=== PATIENT | male | born 1990 | race Two or more races ===

== ENCOUNTER 2025-04-08 18:26 | Emergency (ER) | payer MEDICAID, SELFPAY ==
--- NOTE | 2025-04-08 | ECG_ITS ---
Test Reason : CP Blood Pressure : */* mmHG Vent. Rate : 76 BPM Atrial Rate : 76 BPM P-R Int : 188 ms QRS Dur : 74 ms QT Int : 354 ms P-R-T Axes : 75 67 43 degrees QTcB Int : 398 ms Normal sinus rhythm Normal ECG No previous ECGs available Referred By: Generic ED Physician Electronically Signed By: HUSAM RIOJAS MD
[2025-04-08 18:34] VITALS: BP 122/78; BP 129/79; PULSE 61; PULSE 75; RESP 12; TEMP 36.8; O2SAT 100; O2SAT 99; BMI 19.3
[2025-04-08 18:41] VITALS: BP 110/70; PULSE 67; RESP 14; TEMP 36.6; O2SAT 98
[2025-04-08 19:02] LABS: MANUAL DIFF FLAG NO
[2025-04-08 19:03] LABS: Basophils Percent Auto 0.7 % (0-2); Eosinophils Absolute Auto 0.1 X10*3/uL (0.0-0.4); Hemoglobin 13.9 g/dl (14.0-18.0); Imm Gran Abs Auto 0.01 X10*3/uL (0.00-0.03); Imm Gran Pct Auto 0.3 % (0.0-0.4); Lymphocytes Percent Auto 33.1 % (20-40); Mean Corpuscular HGB Conc 36.6 g/dl (31.0-36.0); Mean Corpuscular Hemoglobin 30.9 pg (27.0-33.0); Mean Corpuscular Volume 84.4 fL (80.0-98.0); Mean Platelet Volume 9.2 fL (9.4-12.4); Monocytes Absolute Auto 0.3 X10*3/uL (0.1-1.2); Monocytes Percent Auto 10.3 % (2-11); Neutrophils Absolute Auto 1.6 x10*3/uL (2.0-8.3); Neutrophils Percent Auto 52.6 % (45-73); Platelet Count 180 X10*3/uL (160-400); Red Cell Distribution Width 14.1 % (11.0-16.0)
--- NOTE | 2025-04-08 19:09 | ED_ITS ---
HPI - Chest Pain General Chief Complaint: Chest Pain Stated Complaint: 910 chest pressure/palps, dizzy, shaky, dehydrate Time Seen by Provider: 04/08/25 19:09 History of Present Illness ED Provider: HPI narrative: 34-year-old male reports history of aplastic anemia however states he is not on any medications, he has not been drinking water all day and states has not urinated since this morning he started feeling dizzy and having palpitations and having not enough 10 press chest pressure was chest since resolved he states he has been under lot of stress he smokes tobacco and marijuana. At the time my evaluation he only reports being thirsty denies chest pain fevers chills nausea vomiting or diaphoresis. Related Data Allergies Allergy/AdvReac Type Severity Reaction Status Date / Time No Known Allergies Allergy Verified 04/08/25 18:40 Review of Systems 2 Constitutional: Constitutional: Reports as per [facility] Social History Social History Smoked in Last 30 Days: Yes Use of substances other than those prescribed or required for medical reasons: Yes Substance Use Type: Marijuana Advance Directives: No Advance Directives Information Provided: No Physical Exam 2 Vital Signs: Vital Signs: Last Vital Signs Temp 97.9 F 04/08/25 20:00 Pulse 70 04/08/25 20:00 Resp 10 L 04/08/25 20:00 BP 112/71 04/08/25 20:00 Pulse Ox 99 04/08/25 20:00 O2 Del Method Room Air 04/08/25 20:00 BMI result Body Mass Index 19.3 Const: Other: * Gen: ?Overall well-appearing patient * HEENT: PERRLA, EOMI, MMM, * Neck: Supple, no LAD * CV: RRR, no obvious murmurs appreciated * Resp: ?No wheezing rales rhonchi no stridor moving air well * Abd: ?Bowel sounds are present, no tenderness no rebound no rigidity * MSK: FROM, strength 5/5 all extremities * Skin: Warm, dry, intact, * Neuro: ?Alert and oriented x3, moving upper and lower extremities symmetrically, no obvious facial asymmetry noted Medications Administered Discontinued Medications Generic Name Dose Route Start Last Admin Trade Name Freq PRN Reason Stop Dose Admin Sodium Chloride 1,000 mls @ 999 mls/hr 04/08/25 19:30 04/08/25 19:51 Ns IV 04/08/25 20:30 999 mls/hr .Q1H1M SAFIA Administration Medical Decision Making Medical Decision Making [facility] Narrative: No hypoxia tachycardic to suspect PE, we will obtain chest x-ray to evaluate for pneumothorax, unlikely that this is related to Boerhaave syndrome has not had any forceful vomiting, chest x-ray to evaluate for mediastinal widening this is doubtful that he has aortic dissection he is very well-appearing and vital signs are stable, EKG without any changes to suspect myocarditis or ACS or dysrhythmia, we will give fluids we will re-evaluate anticipating discharge Lab Data [facility] Lab Attestation statement: I reviewed the patient's lab results. 04/08/25 18:57 04/08/25 18:57 Labs: Lab Results 04/08/25 Range/Units 18:57 WBC 3.0 L (4.8-10.8) X10*3/uL RBC 4.50 L (4.60-5.80) X10*6/uL Hgb 13.9 L (14.0-18.0) g/dl Hct 38.0 L (42.0-52.0) % MCV 84.4 (80.0-98.0) fL MCH 30.9 (27.0-33.0) pg MCHC 36.6 H (31.0-36.0) g/dl RDW 14.1 (11.0-16.0) % Plt Count 180 (160-400) X10*3/uL MPV 9.2 L (9.4-12.4) fL Immature Gran % (Auto) 0.3 (0.0-0.4) % Neut % (Auto) 52.6 (45-73) % Lymph % (Auto) 33.1 (20-40) % [place] % (Auto) 10.3 (2-11) % Eos % (Auto) 3.0 (0-4) % Baso % (Auto) 0.7 (0-2) % Lymph # (Auto) 1.0 L (1.2-4.9) X10*3/uL [place] # (Auto) 0.3 (0.1-1.2) X10*3/uL Eos # (Auto) 0.1 (0.0-0.4) X10*3/uL Baso # (Auto) 0.0 (0.0-0.2) X10*3/uL Abs Immat Gran (auto) 0.01 (0.00-0.03) X10*3/uL Absolute Neuts (auto) 1.6 L (2.0-8.3) x10*3/uL Absolute Nucleated RBC 0.000 (0.0-0.012) X10*3/uL Nucleated RBC % (auto) 0.0 (0.0-0.2) /100WBC Sodium 140 (135-145) mmol/L Potassium 3.7 (3.3-5.1) mmol/L Chloride 108 (96-108) mmol/L Carbon Dioxide 24 (22-29) mmol/L Anion Gap 12 (12-20) BUN 15 (9-16) mg/dL Creatinine 0.78 (0.5-1.4) mg/dL Estim Creat Clear Calc 106.2 Estimated GFR > 60 Random Glucose 102 (60-115) mg/dL Calcium 8.1 L (8.4-10.2) mg/dL Magnesium 1.7 (1.6-2.6) mg/dL Total Bilirubin 0.4 (0.0-1.0) mg/dL AST 21 (5-37) U/L ALT 12 (0-40) U/L Alkaline Phosphatase 84 (39-117) U/L Troponin I High Sens < 2.7 (<3.5-35.0) ng/L Total Protein 6.6 (6.5-8.0) g/dL Albumin 4.0 (3.5-5.0) g/dL Independent Interpretation I performed an independent interpretation of an: EKG (Seventy-six normal sinus rhythm, otherwise normal ECG without dysrhythmia, AV latasha blocks or ST-T changes to suspect underlying ACS, my independent interpretation) Discharge Plan Discharge Clinical Impression: Chest pain, Dizziness Patient Disposition: Home, Self-Care Instructions: Chest Pain (ED) Additional Instructions: Diagnosis and Initial Evaluation: You have been evaluated in the Emergency Department (ED) for chest pain. Based on your clinical assessment, electrocardiogram (ECG), and high-sensitivity cardiac troponin (hs-cTn) levels, you have been classified as low-risk for acute coronary syndrome (ACS) and myocardial infarction (NV). This means that your likelihood of having a heart attack or other serious heart condition in the next 30 days is very low. Please quit smoking tobacco, make sure to have follow up with the primary care physician, stay well hydrated, see my discharge instructions below Follow-Up Care: ? Primary Care Provider (PCP) or Privacy Manager: It is important to follow up with your primary care provider or rock dust sprayer within the next 14 to 30 days. This follow-up is crucial to ensure that any underlying conditions are managed appropriately and to discuss any further testing that may be needed. ? Notification: If you have an established PCP or rock dust sprayer, they have been notified of your ED visit to facilitate continuity of care. Self-Care and Monitoring: ? Medications: Continue taking any prescribed medications as directed. If you have been given new medications, ensure you understand how and when to take them. ? Activity: Resume normal activities as tolerated. Avoid strenuous activities until you have discussed them with your healthcare provider. ? Diet: Maintain a heart-healthy diet, low in saturated fats, cholesterol, and sodium. Red Flags: Seek immediate medical attention if you experience any of the following: ? New or worsening chest pain ? Shortness of breath ? Dizziness or fainting ? Pain radiating to your arm, neck, or jaw ? Sweating, nausea, or vomiting Additional Testing: In some cases, outpatient testing such as a stress test or imaging may be recommended to further evaluate your heart health. Your follow-up provider will discuss this with you if necessary. Mental Health: Anxiety and stress can contribute to chest pain. Consider discussing any concerns with your healthcare provider, who may recommend screening for anxiety or depression and appropriate management strategies. Contact Information: If you have any questions or concerns before your follow-up appointment, please contact your healthcare provider or the ED where you were evaluated. Summary: You have been discharged from the ED with a low risk of serious heart conditions. Follow the instructions above, attend your follow-up appointments, and seek immediate care if you experience any red flags. Print Language: Tuvaluan
[2025-04-08 19:18] LABS: Alanine Aminotransferase 12 U/L (0-40); Alkaline Phosphatase 84 U/L (39-117); Anion Gap 12 (12-20); Aspartate Amino Transferase 21 U/L (5-37); Bilirubin Total 0.4 mg/dL (0.0-1.0); Blood Urea Nitrogen 15 mg/dL (9-16); Calcium 8.1 mg/dL (8.4-10.2); Carbon Dioxide 24 mmol/L (22-29); Chloride 108 mmol/L (96-108); Creatinine Clr Calc Pharmacy 106.2; Estimated Glomerular Filt Rate > 60; Glucose Random 102 mg/dL (60-115); Magnesium 1.7 mg/dL (1.6-2.6); Potassium 3.7 mmol/L (3.3-5.1); Sodium 140 mmol/L (135-145); Total Protein 6.6 g/dL (6.5-8.0)
[2025-04-08 19:26] LABS: Troponin-I High Sensitivity < 2.7 ng/L (<3.5-35.0)
[2025-04-08] MEDS: 0.9 % Sodium Chloride 1,000 ML 999 ML IV (19:51)
[2025-04-08 20:00] VITALS: BP 112/71; PULSE 70; RESP 10; TEMP 36.6; O2SAT 99
[2025-04-08 21:26] VITALS: BP 113/51; PULSE 71; RESP 16; TEMP 36.4; O2SAT 99
== END 2025-04-08 21:27 | disposition home or self-care (01) ==
PROVIDERS: Emergency Provider Emergency Medicine
DX: R07.89 Other chest pain (principal); E86.0 Dehydration; R42 Dizziness and giddiness; R00.2 Palpitations; F17.210 Nicotine dependence, cigarettes, uncomplicated; F12.90 Cannabis use, unspecified, uncomplicated
CPT/HCPCS: 36415; 80053; 83735; 84484; 85025; 93005; 96360; 99284; 99285

== ENCOUNTER → 2025-04-08 18:44 | Outpatient (BNV) | payer MEDICAID, SELFPAY | PROVIDERS: Emergency Provider Emergency Medicine; Visit Provider Internal Medicine Cardiovascular Disease | DX: R07.9 Chest pain, unspecified (principal) | CPT/HCPCS: 93010 ==

== ENCOUNTER 2025-04-09 18:29 | Emergency (ER) | payer MEDICAID, SELFPAY ==
[2025-04-09 18:35] VITALS: BP 120/82; PULSE 87; O2SAT 100
[2025-04-09 18:41] VITALS: BP 111/82; PULSE 69; RESP 18; TEMP 36.8; O2SAT 98; BMI 20.4
--- NOTE | 2025-04-09 18:46 | ECG_ITS ---
Test Reason : cp Blood Pressure : */* mmHG Vent. Rate : 67 BPM Atrial Rate : 67 BPM P-R Int : 176 ms QRS Dur : 76 ms QT Int : 364 ms P-R-T Axes : 74 82 44 degrees QTcB Int : 384 ms Normal sinus rhythm with sinus arrhythmia Normal ECG When compared with ECG of 08-Apr-2025 18:44, No significant change was found Referred By: Generic ED Physician Electronically Signed By: HUSAM RIOJAS MD
--- NOTE | 2025-04-09 19:01 | ED_ITS ---
HPI - Chest Pain General Chief Complaint: Chest Pain Stated Complaint: CP Time Seen by Provider: 04/09/25 19:00 Source: patient Mode of arrival: ambulatory Limitations: no limitations History of Present Illness ED Provider: Dr. Vamsi Beck HPI narrative: 34-year-old male reports history of aplastic anemia who presents emergency department for evaluation of chest pain, palpitations, feeling anxious, lightheaded and dizzy with intermittent episodes lasting 1-2 hours for the last 2 weeks. He was also concerned that he was not drinking enough water and he has not urinated since this morning. He has intermittent episodes of feeling dizzy with palpitations palpitations. these episodes of palpitations that will last approximately 1-2 hours, he feels like his heart is pounding,racing and occasionally skips a beat. He also developed a pressure-like chest pain which has become more prominent and severe since yesterday. He has been under lot of stress recently and is feeling very anxious. He does 1-2 cups of coffee daily, he denies drinking other caffeinated beverages. He does smokes tobacco and marijuana. . Since being in the emergency department his chest pain resolved. At the time my evaluation he only reports being thirsty. He denied chest pain, fevers ,chills ,nausea, vomiting or diaphoresis. The patient was seen in our emergency department yesterday with similar complaints and diagnosed with chest pain and dizziness. Related Data Previous Rx's ?Medication ?Instructions ?Recorded propranolol 10 mg tablet 10 mg PO BID #60 tabs 04/09/25 lorazepam 1 mg tablet (Ativan) 1 mg PO BEDTIME PRN anxiety/sleep 04/10/25 #10 tabs Allergies Allergy/AdvReac Type Severity Reaction Status Date / Time No Known Allergies Allergy Verified 04/10/25 00:21 Review of Systems Review of Systems: Yes all other systems are reviewed and are negative [facility] Past Medical History [facility] Narrative: Social history: He does smoke cigarettes. He states that he occasionally drinks beer. He does smoke marijuana frequently. He states that he occasionally snorts cocaine but has not done this recently. Social History Social History Alcohol intake: current Alcohol intake frequency: a few times a week Alcohol type: beer Smoked in Last 30 Days: Yes Use of substances other than those prescribed or required for medical reasons: Yes Substance Use Type: Marijuana Substance Use Frequency: Daily Advance Directives: No Do you have a plan to hurt others: No Plan Physical Exam Vital Signs: Vital Signs: Last Vital Signs Temp 98.0 F 04/09/25 20:54 Pulse 64 04/09/25 20:59 Resp 16 04/09/25 20:54 BP 112/78 04/09/25 20:59 Pulse Ox 97 04/09/25 20:54 O2 Del Method Room Air 04/09/25 20:54 BMI result Body Mass Index 20.4 vital signs were normal. Exam: General: Awake, alert in no distress Head: Normocephalic, atraumatic EENT: PERRL, Lids normal, sclera normal, conjunctiva normal, nose normal , ears normal, throat without erythema or exudates Neck: Supple, no adenopathy Lung: breath sounds symmetric, no wheezing, rales or rhonchi Chest: symmetric movement, nontender Heart: regular rate and rhythm, normal S1, S2 no murmurs or rubs Abdomen: soft, non-tender, nondistended, normal bowel sounds Back: no vertebral tenderness, no CVAT Extremities: no deformities, moves all extremities symmetrically Neuro: Awake, alert, oriented, normal speech, cranial nerves intact, moves all extremities symmetrically Psych: Pleasant, cooperative Medications Administered Discontinued Medications Generic Name Dose Route Start Last Admin Trade Name Freq PRN Reason Stop Dose Admin Propranolol HCl 10 mg 04/09/25 20:20 04/09/25 20:59 Propranolol Hcl 10 Mg Tablet PO 04/09/25 20:21 10 mg ONCE ONE Administration Protocol Medical Decision Making Medical Decision Making MDM Narrative: 34-year-old male reports history of aplastic anemia who presents emergency department for evaluation of chest pain, palpitations, feeling anxious, lightheaded and dizzy with intermittent episodes lasting 1-2 hours for the last 2 weeks. Patient does drink 1-2 cups of coffee per day, does not use any other caffeinated energy drinks /beverages. Patient does drink beer occasionally, smokes marijuana frequently and occasionally snorts cocaine but is not use cocaine recently. He has also been experiencing intermittent chest pressure. The patient [place] [facility] [place] with similar complaints And diagnosed with chest pain and dizziness. Vital signs were unremarkable. Physical examination was unremarkable.. Differential diagnosis: Includes but is not limited to Palpitations, arrhythmia, anxiety, cocaine use disorder Course: I did review the patient's laboratory evaluation and workup from yesterday's ED visit. As WBC was low 3000 and he had a normal sciatic anemia with an H&H of 19.3 and 30.8. Patient does have a history of aplastic anemia and is followed by Hematology at [facility]. CMP was unremarkable. Patient's troponin yesterday was below detectable limits. Given this relatively negative workup I did not think that the patient laboratory evaluation at today's visit. The patient's 12 EKG was unremarkable. I believe that the symptoms that the patient is experiencing more consistent with palpitations and may be related to stress, anxiety, use of caffeine or cocaine. I did discuss this with the patient and told her that needs to avoid caffeine for at least 2 weeks and to not use cocaine since this could be causing problems. Since the patient is experiencing palpitations with a sensation of tachycardia felt that he would benefit from a beta-zen. The patient was prescribed propanolol 10 mg twice a day for 2 weeks to see if this improves his symptoms. He was advised to follow-up with his primary care provider or with our product development technician for further evaluate since palpitations as an outpatient. He was discharged home with printed and verbal instructions. Admission/Observation Consideration of admission/observation: Escalation of care including admission/observation considered (No) Independent Interpretation I performed an independent interpretation of an: EKG Interpretation: My independent interpretation patient's 12 EKG done on 04/09/2025 at 18:55 hours is as follows: Normal sinus rhythm with a rate of 67, normal CA interval, QRS duration QTC interval, no ST segment elevation, no ST segment depression, no old PACs or PVCs. Patient does have peaked V2 through V4, compared to an EKG done yesterday 04/08/2025 at 18:44 hours there was no significant change. Prescription Management I considered prescription management with: Other ( beta-zen, propanolol) Discharge Plan Discharge Clinical Impression: Palpitations Patient Disposition: Home, Self-Care Instructions: Heart Palpitations (DC) Additional Instructions: Your EKG today was unremarkable. You do not have evidence of LVH on your EKG Your white blood cell count of 3.0 (normal is 4.8 to 10.8) Your hemoglobin and hematocrit were slightly low at 13.9 and 38. Your platelet count was normal. Given these relatively normal values I do not think that your in an aplastic crisis at this time. Your complete blood count and troponin (marker of heart damage) were normal yesterday At this time, I believe that your symptoms are caused by palpitations (the sensation that your heart is beating fast) The treatment is to start a beta zen, propranolol 10 mg twice a day for 2 weeks then as needed for palpitations. You need to stop drinking caffeine beverages and avoid stimulants and this will improve your palpitations as well. If this treatment does not work or if your symptoms are getting worse then I want you to follow up with your primary care doctor or with our on-call product development technician to get a workup for palpitations. This would include an echocardiogram, Holter monitor for 2-3 to and possibly an event monitor or 1 month. Follow-up with your doctor in 2 days. Please return to the emergency department if your symptoms get worse or if you develop any symptoms that are concerning to you. Prescriptions: New propranolol 10 mg tablet 10 mg PO BID Qty: 60 0RF No Action lorazepam [Ativan] 1 mg tablet 1 mg PO BEDTIME PRN (Reason: anxiety/sleep) Qty: 10 0RF Interventions: ED Discharge Assessment Last Done: 04/09/25 20:54 Discharge Date/Time: 04/09/25 21:03 Print Language: Amharic
[2025-04-09 20:37] VITALS: BP 104/50; PULSE 53; RESP 16; TEMP 36.7; O2SAT 97
[2025-04-09 20:54] VITALS: BP 104/50; PULSE 53; RESP 16; TEMP 36.7; O2SAT 97
[2025-04-09 20:59] VITALS: BP 112/78; PULSE 64
[2025-04-09] MEDS: Propranolol HCL 10 MG TABLET PO (20:59)
== END 2025-04-09 21:03 | disposition home or self-care (01) ==
PROVIDERS: Emergency Provider Emergency Medicine Emergency Medical Services
DX: R00.2 Palpitations (principal); R07.9 Chest pain, unspecified; R42 Dizziness and giddiness
CPT/HCPCS: 93005; 99283; 99284

== ENCOUNTER → 2025-04-09 18:46 | Outpatient (BNV) | payer MEDICAID, SELFPAY | PROVIDERS: Emergency Provider Emergency Medicine Emergency Medical Services; Visit Provider Internal Medicine Cardiovascular Disease | DX: R00.1 Bradycardia, unspecified (principal) | CPT/HCPCS: 93010 ==

== ENCOUNTER 2025-04-10 00:07 | Emergency (ER) | payer MEDICAID, SELFPAY ==
--- NOTE | 2025-04-10 | ECG_ITS ---
Test Reason : cp Blood Pressure : */* mmHG Vent. Rate : 56 BPM Atrial Rate : 56 BPM P-R Int : 162 ms QRS Dur : 86 ms QT Int : 386 ms P-R-T Axes : 88 76 67 degrees QTcB Int : 372 ms Sinus bradycardia Otherwise normal ECG When compared with ECG of 09-Apr-2025 18:55, No significant change was found Referred By: Generic ED Physician Electronically Signed By: HUSAM RIOJAS MD
--- NOTE | ~2025-04-10 | XR_ITS ---
CLINICAL HISTORY: Left-sided chest pain 1 view chest x-ray Comparison: None Findings: The lungs are clear. Heart size is normal. No acute fracture. IMPRESSION: 1. No acute findings. This document has been electronically signed by: Noe Spann MD, PHD on 04/10/2025 03:34:20
[2025-04-10 00:12] VITALS: BP 128/76; PULSE 54; O2SAT 100
[2025-04-10 00:20] VITALS: BP 110/76; PULSE 80; RESP 18; TEMP 36.9; O2SAT 98; BMI 20.4
[2025-04-10 00:29] LABS: MANUAL DIFF FLAG NO
[2025-04-10 00:30] LABS: Basophils Percent Auto 0.5 % (0-2); Eosinophils Absolute Auto 0.1 X10*3/uL (0.0-0.4); Eosinophils Percent Auto 2.7 % (0-4); Hematocrit 41.8 % (42.0-52.0); Hemoglobin 15.5 g/dl (14.0-18.0); Lymphocytes Absolute Auto 1.3 X10*3/uL (1.2-4.9); Lymphocytes Percent Auto 34.7 % (20-40); Mean Corpuscular HGB Conc 37.1 g/dl (31.0-36.0); Mean Corpuscular Hemoglobin 30.5 pg (27.0-33.0); Mean Corpuscular Volume 82.3 fL (80.0-98.0); Mean Platelet Volume 8.9 fL (9.4-12.4); Monocytes Absolute Auto 0.3 X10*3/uL (0.1-1.2); Monocytes Percent Auto 8.8 % (2-11); Neutrophils Percent Auto 53.3 % (45-73); Platelet Count 217 X10*3/uL (160-400); Red Blood Count 5.08 X10*6/uL (4.60-5.80); Red Cell Distribution Width 13.6 % (11.0-16.0); White Blood Count 3.8 X10*3/uL (4.8-10.8)
[2025-04-10 00:51] LABS: Troponin-I High Sensitivity < 2.7 ng/L (<3.5-35.0)
[2025-04-10 00:52] LABS: Alanine Aminotransferase 13 U/L (0-40); Albumin Level 4.5 g/dL (3.5-5.0); Alkaline Phosphatase 95 U/L (39-117); Anion Gap 15 (12-20); Aspartate Amino Transferase 33 U/L (5-37); Bilirubin Total 0.7 mg/dL (0.0-1.0); Blood Urea Nitrogen 8 mg/dL (9-16); Calcium 9.6 mg/dL (8.4-10.2); Carbon Dioxide 21 mmol/L (22-29); Chloride 107 mmol/L (96-108); Creatinine Clr Calc Pharmacy 130.7; Estimated Glomerular Filt Rate > 60; Glucose Random 114 mg/dL (60-115); Potassium 3.7 mmol/L (3.3-5.1); Sodium 139 mmol/L (135-145); Total Protein 7.4 g/dL (6.5-8.0)
--- NOTE | 2025-04-10 02:22 | ED_ITS ---
HPI - Chest Pain General Chief Complaint: Chest Pain Stated Complaint: CHEST PAIN/PRESSURE Time Seen by Provider: 04/10/25 02:02 Source: patient Mode of arrival: ambulatory Limitations: no limitations History of Present Illness ED Provider: HPI narrative: Patient's history of severe anxiety was seen here earlier for chest pain comes back again as not able to sleep for last 3 nights and having chest pain patient has a labs done prior to my evaluation which was normal cardiac enzymes and EKG was without any ischemic changes Related Data Previous Rx's ?Medication ?Instructions ?Recorded propranolol 10 mg tablet 10 mg PO BID #60 tabs 04/09/25 lorazepam 1 mg tablet (Ativan) 1 mg PO BEDTIME PRN anxiety/sleep 04/10/25 #10 tabs Allergies Allergy/AdvReac Type Severity Reaction Status Date / Time No Known Allergies Allergy Verified 04/10/25 00:21 Review of Systems 2 Review of Systems: Yes all other systems are reviewed and are negative [facility] Social History Social History Alcohol intake: current Alcohol intake frequency: a few times a week Alcohol type: beer Smoked in Last 30 Days: Yes Use of substances other than those prescribed or required for medical reasons: Yes Substance Use Type: Marijuana Substance Use Frequency: Daily Advance Directives: No Do you have a plan to hurt others: No Plan Physical Exam 2 Vital Signs: Vital Signs: Last Vital Signs Temp 98.3 F 04/10/25 03:59 Pulse 55 04/10/25 03:59 Resp 14 04/10/25 03:59 BP 100/61 04/10/25 03:59 Pulse Ox 95 04/10/25 03:59 O2 Del Method Room Air 04/10/25 03:59 BMI result Body Mass Index 20.4 Appearance: Alert. Oriented X3. No acute distress. Anxious Eyes: PERRLA, No Nystagmus ENT: Pharynx normal. Oral Mucosa moist Neck: Normal inspection. Neck supple. CVS: Normal heart rate and rhythm. Pulses normal. Respiratory: No respiratory distress. Equal air entry bilateral, no wheezing/rales/rhonchi Abdomen: Soft and nontender. Bowel sounds are present, no mass palpable, no CVA tenderness Skin: Skin warm and dry. Normal skin color. Normal skin turgor. Extremities: No lower extremity edema. No calf tenderness Neuro: Oriented X 3. No motor deficit. No sensory deficit.No cerebellar signs , cranial nerves II-XII intact Medications Administered Discontinued Medications Generic Name Dose Route Start Last Admin Trade Name Zoya PRN Reason Stop Dose Admin Lorazepam 2 mg 04/10/25 02:27 04/10/25 02:51 Lorazepam 1 Mg Tablet PO 04/10/25 02:28 2 mg ONCE ONE Administration Medical Decision Making Medical Decision Making [facility] Narrative: Patient has severe anxiety chest x-ray negative for any acute pathology labs are stable EKG without ischemic changes was given Ativan Differential Diagnosis Differential Diagnoses: The differential diagnosis associated with the presentation includes Lab Data [facility] Lab Attestation statement: I reviewed the patient's lab results. 04/10/25 00:24 04/10/25 00:24 Labs: Lab Results 04/10/25 Range/Units 00:24 WBC 3.8 L (4.8-10.8) X10*3/uL RBC 5.08 (4.60-5.80) X10*6/uL Hgb 15.5 (14.0-18.0) g/dl Hct 41.8 L (42.0-52.0) % MCV 82.3 (80.0-98.0) fL MCH 30.5 (27.0-33.0) pg MCHC 37.1 H (31.0-36.0) g/dl RDW 13.6 (11.0-16.0) % Plt Count 217 (160-400) X10*3/uL MPV 8.9 L (9.4-12.4) fL Immature Gran % (Auto) 0.0 (0.0-0.4) % Neut % (Auto) 53.3 (45-73) % Lymph % (Auto) 34.7 (20-40) % [place] % (Auto) 8.8 (2-11) % Eos % (Auto) 2.7 (0-4) % Baso % (Auto) 0.5 (0-2) % Lymph # (Auto) 1.3 (1.2-4.9) X10*3/uL [place] # (Auto) 0.3 (0.1-1.2) X10*3/uL Eos # (Auto) 0.1 (0.0-0.4) X10*3/uL Baso # (Auto) 0.0 (0.0-0.2) X10*3/uL Abs Immat Gran (auto) 0.00 (0.00-0.03) X10*3/uL Absolute Neuts (auto) 2.0 (2.0-8.3) x10*3/uL Absolute Nucleated RBC 0.000 (0.0-0.012) X10*3/uL Nucleated RBC % (auto) 0.0 (0.0-0.2) /100WBC Sodium 139 (135-145) mmol/L Potassium 3.7 (3.3-5.1) mmol/L Chloride 107 (96-108) mmol/L Carbon Dioxide 21 L (22-29) mmol/L Anion Gap 15 (12-20) BUN 8 L (9-16) mg/dL Creatinine 0.67 (0.5-1.4) mg/dL Estim Creat Clear Calc 130.7 Estimated GFR > 60 Random Glucose 114 (60-115) mg/dL Calcium 9.6 D (8.4-10.2) mg/dL Total Bilirubin 0.7 (0.0-1.0) mg/dL AST 33 (5-37) U/L ALT 13 (0-40) U/L Alkaline Phosphatase 95 (39-117) U/L Troponin I High Sens < 2.7 (<3.5-35.0) ng/L Total Protein 7.4 (6.5-8.0) g/dL Albumin 4.5 (3.5-5.0) g/dL Independent Interpretation I performed an independent interpretation of an: EKG and Plain X-Ray Interpretation: Sinus bradycardia heart rate 56 beats per minute normal intervals normal axis no acute STT wave changes no acute ischemia Discharge Plan Discharge Clinical Impression: Atypical chest pain, Anxiety Patient Disposition: Home, Self-Care Instructions: Noncardiac Chest Pain (ED), Anxiety (ED) Additional Instructions: Take medication for anxiety and follow up with your PCP Your chest pain is not from the cardiac origin Prescriptions: New lorazepam [Ativan] 1 mg tablet 1 mg PO BEDTIME PRN (Reason: anxiety/sleep) Qty: 10 0RF No Action propranolol 10 mg tablet 10 mg PO BID Qty: 60 0RF Interventions: ED Discharge Assessment Last Done: 04/10/25 03:59 Discharge Date/Time: 04/10/25 04:00 Print Language: Bulgarian
[2025-04-10] MEDS: LORazepam 1 MG TABLET 2 MG PO (02:51)
[2025-04-10 03:59] VITALS: BP 100/61; PULSE 55; RESP 14; TEMP 36.8; O2SAT 95
== END 2025-04-10 04:00 | disposition home or self-care (01) ==
PROVIDERS: Emergency Provider Internal Medicine
DX: R07.89 Other chest pain (principal); F41.9 Anxiety disorder, unspecified; Z79.899 Other long term (current) drug therapy
CPT/HCPCS: 36415; 71045; 80053; 84484; 85025; 93005; 99283; 99284

== ENCOUNTER → 2025-04-10 00:14 | Outpatient (BNV) | payer MEDICAID, SELFPAY | PROVIDERS: Emergency Provider Internal Medicine; Visit Provider Internal Medicine Cardiovascular Disease | DX: R00.1 Bradycardia, unspecified (principal) | CPT/HCPCS: 93010 ==

== ENCOUNTER → 2025-04-10 02:27 | Outpatient (BNV) | payer MEDICAID, SELFPAY | PROVIDERS: Emergency Provider Internal Medicine; Visit Provider General Practice | DX: R07.89 Other chest pain (principal) | CPT/HCPCS: 71045 ==

== ENCOUNTER 2025-06-05 19:56 | Emergency (ER) | payer MEDICAID, SELFPAY ==
--- NOTE | 2025-06-05 | ECG_ITS ---
Test Reason : cp Blood Pressure : */* mmHG Vent. Rate : 74 BPM Atrial Rate : 74 BPM P-R Int : 178 ms QRS Dur : 74 ms QT Int : 378 ms P-R-T Axes : 75 71 48 degrees QTcB Int : 419 ms Normal sinus rhythm with sinus arrhythmia Normal ECG When compared with ECG of 10-Apr-2025 00:14, No significant change was found Referred By: Generic ED Physician Electronically Signed By: Juan Torres
[2025-06-05 20:08] VITALS: BP 117/92; BP 124/96; PULSE 67; PULSE 76; RESP 14; TEMP 36.6; O2SAT 97; O2SAT 99; BMI 17.7
--- NOTE | 2025-06-05 20:13 | ED.GENADULT ---
HPI - General Adult General Chief complaint: Chest Pain Stated complaint: Chest pain after smoking marijuana Time Seen by Provider: 06/05/25 20:12 Source: patient and family ( girlfriend at bedside corroborating history) Mode of arrival: EMS Limitations: no limitations History of Present Illness ED Provider: Sonny Han PA-C HPI narrative: 35-year-old male with history of anxiety, aplastic anemia, presents to the ED due to episode of panic attack prior to arrival. Patient states he was smoking marijuana and 20 minutes after he began to feel palpitations and substernal chest pain which sent him into a panic attack. 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 He states these episodes are also associated with difficulty swallowing. Patient states he saw his PCP 05/21 and addressed these concerns with his healthcare provider. He was prescribed lorazepam for anxiety. Patient states he does not take these medications as he is concerned about side effects. he denies shortness of breath, nausea, vomiting, headache, dizziness, lightheadedness, weakness visual changes, headache, black/tarry stool complaint: palpitations Related Data Previous Rx's ?Medication ?Instructions ?Recorded propranolol 10 mg tablet 10 mg PO BID #60 tabs 04/09/25 lorazepam 1 mg tablet (Ativan) 1 mg PO BEDTIME PRN anxiety/sleep 04/10/25 #10 tabs Allergies Allergy/AdvReac Type Severity Reaction Status Date / Time No Known Allergies Allergy Verified 06/05/25 20:16 Review of Systems Review of Systems: CONST: Negative for fever, body aches and chills. HENT: Negative for neck pain/stiffness, headache, congestion, sore throat, swelling. EYES: Negative for discharge/pain or vision changes. RESP: Negative for cough/hemoptysis and shortness of breath. CV: Negative chest pain, difficulty breathing, palpitations. POS palpitations, substernal chest pain ABD: Negative pain, nausea, vomiting. : Negative increase frequency, dysuria, blood in urine or stool. MUSC: Negative for muscle aches, edema. SKIN: Negative rash, lesions/sores. NEURO: Negative headache, dizziness, weakness. [facility] Past Medical History Attestation statement: The following information was validated with the patient. Social History Social History Alcohol intake: current Alcohol intake frequency: a few times a week Alcohol type: beer Smoked in Last 30 Days: Yes Use of substances other than those prescribed or required for medical reasons: Yes Substance Use Type: Marijuana Advance Directives: No Advance Directives Information Provided: No Physical Exam ED Vital Signs: Vital Signs - 24 hr 06/05/25 20:08 06/05/25 22:18 Temperature 98 F Pulse Rate 67 53 Respiratory Rate 14 16 Blood Pressure 124/96 H 114/67 Pulse Oximetry 99 97 Oxygen Delivery Method Room Air Room Air BMI result Body Mass Index 17.7 GENERAL APPEARANCE: ?AxOx4, no acute distress. HEENT: ?NC, AT. MMM. EOMI, clear conjunctiva, oropharynx clear. NECK: ?Supple without lymphadenopathy.? No stiffness or restricted ROM. HEART:? Normal rate and regular rhythm, normal S1/S1, no m/r/g LUNGS:? CTAB, moving air well. No crackles or wheezes are heard. ABDOMEN: ?Soft, nontender, nondistended with good bowel sounds heard. EXTREMITIES: ?Without cyanosis, clubbing or edema. NEUROLOGICAL: ?Grossly nonfocal. Alert and oriented, moving all 4 extremities. Observed to ambulate with normal gait. Skin: ?Warm and dry without any rash. Medications Administered Discontinued Medications Generic Name Dose Route Start Last Admin Trade Name Freq PRN Reason Stop Dose Admin Lactated Ringer's 1,000 mls @ 999 mls/hr 06/05/25 20:30 06/05/25 22:18 Lr IV 06/05/25 21:30 Infused .Q1H1M ONE Infusion Lorazepam 1 mg 06/05/25 20:30 06/05/25 20:48 Lorazepam 1 Mg Tablet PO 06/05/25 20:31 1 mg ONCE ONE Administration Medical Decision Making Medical Decision Making MDM Narrative: 35-year-old male with history of anxiety, aplastic anemia, presents to the ED due to episode of panic attack prior to arrival. Patient states he was smoking marijuana and 20 minutes after he began to feel palpitations and substernal chest pain which sent him into a panic attack. 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 He states these episodes are also associated with difficulty swallowing. Patient states he saw his PCP 05/21 and addressed these concerns with his healthcare provider. He was prescribed lorazepam for anxiety. Patient states he does not take these medications as he is concerned about side effects. 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 VSS, in no acute distress, nontoxic appearing. Patient has been seen in the department several times for same symptoms. Patient has been prescribed propranolol and lorazepam from the ED, and lorazepam from his primary care provider. Patient states he does not want to take these medications as he is worried about side effects. I counseled the patient on the need to control his anxiety symptoms and how they keep bring him back into the department due to him not managing his symptoms. I encouraged him to follow back up with his PCP to discuss his reluctance to start medications, explore referral for therapy to help him manage his symptoms. I counseled the patient on how marijuana can activate the sympathetic nervous system and inhibit the parasympathetic nervous system causing tachycardia , which can make him feel worry and cause him to go into a panic attack. Patient's EKG normal sinus rhythm, unremarkable. H&H stable at 13.3/ 35.9%, labs including initial troponin undetectable. At this time I do not believe any emergent processes going on. I believe patient is experiencing panic attack from anxiety, I gave patient 1 L of fluid, and 1 mg of lorazepam for anxiety. Will reassess for alleviation of symptoms. Course 22:34- patient sleeping quietly in stretcher, I woke patient up he states his anxiety and palpitations have resolved after medicating with 1 g lorazepam and IV fluids. I again encouraged the patient to follow up with his PCP to discuss his hesitation of beginning medications, and therapy referral to help manage anxiety. I again counseled him on how marijuana can increase heart rate causing tachycardia which could be contributing to his feelings of palpitations after smoking. Patient feels comfortable to go home. Differential Diagnosis Differential Diagnoses: The differential diagnosis associated with the presentation includes Palpitations Arrhythmia Anxiety Marijuana use Admission/Observation Consideration of admission/observation: Escalation of care including admission/observation considered Lab Data MDM Lab Attestation statement: I reviewed the patient's lab results. 06/05/25 20:29 06/05/25 20:29 Labs: Lab Results 06/05/25 Range/Units 20:29 WBC 2.9 L (4.8-10.8) X10*3/uL RBC 4.43 L (4.60-5.80) X10*6/uL Hgb 13.3 L (14.0-18.0) g/dl Hct 35.9 L (42.0-52.0) % MCV 81.0 (80.0-98.0) fL MCH 30.0 (27.0-33.0) pg MCHC 37.0 H (31.0-36.0) g/dl RDW 13.2 (11.0-16.0) % Plt Count 206 (160-400) X10*3/uL MPV 9.0 L (9.4-12.4) fL Immature Gran % (Auto) 0.0 (0.0-0.4) % Neut % (Auto) 35.2 L (45-73) % Lymph % (Auto) 49.8 H (20-40) % [place] % (Auto) 11.5 H (2-11) % Eos % (Auto) 2.8 (0-4) % Baso % (Auto) 0.7 (0-2) % Lymph # (Auto) 1.4 (1.2-4.9) X10*3/uL [place] # (Auto) 0.3 (0.1-1.2) X10*3/uL Eos # (Auto) 0.1 (0.0-0.4) X10*3/uL Baso # (Auto) 0.0 (0.0-0.2) X10*3/uL Abs Immat Gran (auto) 0.00 (0.00-0.03) X10*3/uL Absolute Neuts (auto) 1.0 L (2.0-8.3) x10*3/uL Absolute Nucleated RBC 0.000 (0.0-0.012) X10*3/uL Nucleated RBC % (auto) 0.0 (0.0-0.2) /100WBC Sodium 139 (135-145) mmol/L Potassium 3.5 (3.3-5.1) mmol/L Chloride 106 (96-108) mmol/L Carbon Dioxide 26 (22-29) mmol/L Anion Gap 11 L (12-20) BUN 14 (9-16) mg/dL Creatinine 0.92 (0.5-1.4) mg/dL Estim Creat Clear Calc 87.1 Estimated GFR > 60 Random Glucose 84 (60-115) mg/dL Calcium 8.5 D (8.4-10.2) mg/dL Total Bilirubin 0.5 (0.0-1.0) mg/dL AST 23 (5-37) U/L ALT 16 (0-40) U/L Alkaline Phosphatase 71 (39-117) U/L Troponin I High Sens < 2.7 (<3.5-35.0) ng/L Total Protein 6.4 L (6.5-8.0) g/dL Albumin 4.0 (3.5-5.0) g/dL Independent Interpretation I performed an independent interpretation of an: EKG Interpretation: I independently interpreted the EKG Vent. Rate : 74 BPM Atrial Rate : 74 BPM P-R Int : 178 ms QRS Dur : 74 ms QT Int : 378 ms P-R-T Axes : 75 71 48 degrees QTcB Int : 419 ms Normal sinus rhythm with sinus arrhythmia Normal ECG There were no changes when compared to previous EKGs Independent Historian Clinical information obtained from an independent historian. History obtained from or confirmed by: Spouse ( girlfriend at bedside corroborating history) External Record Review External record reviewed: Inpatient record, Office record and Outpatient record Chronic Conditions Patient?s care impacted by: Other ( anxiety, aplastic anemia) Discharge Plan Discharge Clinical Impression: Anxiety, Non-cardiac chest pain Patient Disposition: Home, Self-Care Instructions: Anxiety (ED), Panic Attack (ED) Additional Instructions: You were evaluated in the ED today due to anxiety, palpitations. Your EKG showed normal sinus rhythm, your lab work was negative for any acute processes. Your hemoglobin and hematocrit were slightly low at 13.3 and 35.9%, your platelet count was normal- these values are non-emergent I did not believe that you are in an aplastic crisis at this time. Your troponin which is a marker of heart damage was undetectable. At this time I believe your symptoms are due to anxiety, I do believe the marijuana is causing palpitations, however this is non-emergent, and this is more noticeable to you due to your anxiety. I encourage you to reach out to your PCP for more in-depth discussion over side effects of antianxiety medications, avenues for therapy referrals for better management of your anxiety. Please return to the emergency department if you experience fevers over 100.4?, increased chest pain, shortness of breath, increased anxiety, thoughts of hurting yourself or anyone else, or any other new/ worsening/ concerning symptoms. Prescriptions: No Action propranolol 10 mg tablet 10 mg PO BID Qty: 60 0RF lorazepam [Ativan] 1 mg tablet 1 mg PO BEDTIME PRN (Reason: anxiety/sleep) Qty: 10 0RF Print Language: Eritrean
[2025-06-05 20:39] LABS: MANUAL DIFF FLAG NO
[2025-06-05 20:40] LABS: Hematocrit 35.9 % (42.0-52.0); Hemoglobin 13.3 g/dl (14.0-18.0); Imm Gran Abs Auto 0.00 X10*3/uL (0.00-0.03); Imm Gran Pct Auto 0.0 % (0.0-0.4); Lymphocytes Absolute Auto 1.4 X10*3/uL (1.2-4.9); Mean Corpuscular HGB Conc 37.0 g/dl (31.0-36.0); Mean Corpuscular Hemoglobin 30.0 pg (27.0-33.0); Mean Corpuscular Volume 81.0 fL (80.0-98.0); NRBC Abs Auto 0.000 X10*3/uL (0.0-0.012); NRBC Pct Auto 0.0 /100WBC (0.0-0.2); Platelet Count 206 X10*3/uL (160-400); Red Blood Count 4.43 X10*6/uL (4.60-5.80); White Blood Count 2.9 X10*3/uL (4.8-10.8)
[2025-06-05] MEDS: Lactated Ringers 1,000 ML 999 ML IV (20:48)
--- NOTE | 2025-06-05 21:00 | PC.NURSE ---
medicated pt per MAR. spouse and provider at bedside.
[2025-06-05 21:01] LABS: Alanine Aminotransferase 16 U/L (0-40); Albumin Level 4.0 g/dL (3.5-5.0); Alkaline Phosphatase 71 U/L (39-117); Anion Gap 11 (12-20); Aspartate Amino Transferase 23 U/L (5-37); Blood Urea Nitrogen 14 mg/dL (9-16); Calcium 8.5 mg/dL (8.4-10.2); Carbon Dioxide 26 mmol/L (22-29); Chloride 106 mmol/L (96-108); Creatinine Clr Calc Pharmacy 87.1; Estimated Glomerular Filt Rate > 60; Potassium 3.5 mmol/L (3.3-5.1); Sodium 139 mmol/L (135-145); Total Protein 6.4 g/dL (6.5-8.0)
[2025-06-05 21:09] LABS: Troponin-I High Sensitivity < 2.7 ng/L (<3.5-35.0)
[2025-06-05 22:18] VITALS: BP 114/67; PULSE 53; RESP 16; O2SAT 97
[2025-06-05 22:52] VITALS: BP 114/67; PULSE 53; RESP 16; TEMP 36.6; O2SAT 97
== END 2025-06-05 22:53 | disposition home or self-care (01) ==
PROVIDERS: Emergency Provider Emergency Medicine Emergency Medical Services
DX: F41.9 Anxiety disorder, unspecified (principal); R07.89 Other chest pain
CPT/HCPCS: 36415; 80053; 84484; 85025; 93005; 96360; 99284; 99285; J7120

== ENCOUNTER → 2025-06-05 19:58 | Outpatient (BNV) | payer MEDICAID, SELFPAY | PROVIDERS: Emergency Provider Emergency Medicine Emergency Medical Services; Visit Provider Internal Medicine Cardiovascular Disease | DX: R07.89 Other chest pain (principal) | CPT/HCPCS: 93010 ==

== ENCOUNTER 2025-09-09 17:58 | Emergency (ER) | payer OTHER, SELFPAY ==
--- NOTE | ~2025-09-09 | CT_ITS ---
CLINICAL HISTORY: Left flank pain radiates to groin --- Additional Notes or Special Instructions: R O kidney stone CT Abdomen and Pelvis WO Contrast COMPARISON: None provided FINDINGS: Normal liver. Normal spleen. Normal kidneys. No urolithiasis or hydronephrosis. Normal adrenal glands. Normal pancreas. No visible cholelithiasis. No biliary dilation. No evidence of bowel obstruction or colitis. Normal appendix. Unremarkable bladder. No ascites. No pneumoperitoneum. No lymphadenopathy. No acute fracture. No abdominal aortic aneurysm. IMPRESSION: No acute findings. This document has been electronically signed by: Seth Johnston MD on 09/09/2025 21:45:03
[2025-09-09 18:11] VITALS: BP 121/64; PULSE 78; RESP 18; TEMP 36.6; O2SAT 99; BMI 21.0
--- NOTE | 2025-09-09 18:13 | ED.GENADULT ---
HPI - General Adult General Chief complaint: Back Pain/Injury Stated complaint: lower back pain Time Seen by Provider: 09/09/25 20:18 Source: patient Mode of arrival: ambulatory Limitations: no limitations History of Present Illness ED Provider: Dr. Vamsi Beck HPI narrative: 35-year-old male with a history of aplastic anemia who presents emergency department for evaluation of 1 month of left-sided flank pain radiating to his groin. He states that he saw his PCP and had a urinalysis and was diagnosed with a kidney stone. The patient was started on Flomax and tramadol with no relief his pain. He states over the last 3 days the pain in his left lower back has gotten worse and does radiate to his left groin. He describes the pain is a constant, sharp pain which is 9/10 at its worse in his 9/10 at the time my evaluation. He denied frequency, urgency or dysuria. He has not noticed any hematuria. Related Data Previous Rx's ?Medication ?Instructions ?Recorded propranolol 10 mg tablet 10 mg PO BID #60 tabs 04/09/25 lorazepam 1 mg tablet (Ativan) 1 mg PO BEDTIME PRN anxiety/sleep 04/10/25 #10 tabs acetaminophen 500 mg tablet 1,000 mg (2 x 500 mg) PO Q6H PRN 09/09/25 (Tylenol Extra Strength) pain #20 tabs cyclobenzaprine 10 mg tablet 10 mg PO BEDTIME PRN pain, muscle 09/09/25 spasm #10 tabs ibuprofen 400 mg tablet 400 mg PO TID PRN fever or pain 09/09/25 #30 tabs Allergies Allergy/AdvReac Type Severity Reaction Status Date / Time No Known Allergies Allergy Verified 09/09/25 18:14 Review of Systems Review of Systems: Yes all other systems are reviewed and are negative [facility] Social History Social History Alcohol intake: current Alcohol intake frequency: holidays/special occasions only Alcohol type: beer Substance Use Type: Marijuana Physical Exam ED Vital Signs: Vital Signs - 24 hr 09/09/25 18:11 09/09/25 20:42 Temperature 97.9 F 97.7 F Pulse Rate 78 62 Respiratory Rate 18 16 Blood Pressure 121/64 102/75 Pulse Oximetry 99 98 Oxygen Delivery Method Room Air Room Air BMI result Body Mass Index 21.0 Vital signs were no Exam: General: Awake, alert in no distress Head: Normocephalic, atraumatic EENT: PERRL, sclera and conjunctiva are normal, mouth with no erythema or exudates Neck: Supple, no adenopathy Lung: breath sounds symmetric, no wheezing, no rales and no rhonchi Chest: symmetric movement, nontender Heart: regular rate and rhythm, normal S1, S2 no murmurs or rubs Abdomen: soft, mild left lower quadrant tenderness, no rebound, nondistended, normal bowel sounds Back: no vertebral tenderness, moderate left CVA tenderness, and left-sided tenderness to palpation of the lumbar sacral paraspinal Extremities: no deformities, moves all extremities symmetrically, no edema Neuro: Awake, alert, oriented, normal speech, cranial nerves 2-12 intact, moves all extremities symmetrically Psych: Pleasant, cooperative Course Course Course Narrative: This is a Rapid Medical Examination (RME) performed by Hussain Charles PA-C in triage. Full HPI, ROS, assessment and treatment plan per primary provider in the Main ED. Hx: 35 yo M here for eval of severe low back pain x3 days. diagnosed w/ kidney stone 1 mo ago at PCP via urine sample. taking flomax without relief. no injury/trauma. also prescribed tramadol however he does not like taking these. Plan: labs, UA Medications Administered Discontinued Medications Generic Name Dose Route Start Last Admin Trade Name Freq PRN Reason Stop Dose Admin Ketorolac Tromethamine 60 mg 09/09/25 20:28 09/09/25 20:34 Ketorolac Tromethamine 60 Mg/2 Ml Vial IM 09/09/25 20:29 60 mg ONCE ONE Administration Medical Decision Making Medical Decision Making [facility] Narrative: 35-year-old male with a history of aplastic anemia who presents emergency department for evaluation of 1 month of left-sided flank pain radiating to his groin. He states that he saw his PCP and had a urinalysis and was diagnosed with a kidney stone. The patient was started on Flomax and tramadol with no relief his pain. He states over the last 3 days the pain in his left lower back has gotten worse and does radiate to his left groin. He describes the pain is a constant, sharp pain which is 9/10 at its worse in his 910 at the time my evaluation. He denied frequency, urgency or dysuria. He has not noticed any hematuria. vital signs were unremarkable. Exam did reveal mild LLQ tenderness, left CVA tenderness and left-sided lumbar sacral paraspinal muscle tenderness with spasm. Differential diagnosis: Includes but is not limited to Renal colic, ureteral colic, ureteral stone, musculoskeletal sprain /strain, muscle spasm, anemia, electrolyte abnormalities, urinary tract infection Course: My independent interpretation patient's laboratory and I follows: WBC low 3400-chronic, H&H normal 13.6 and 39.6. Chloride elevated 110, BUN elevated 22 that has 0.9. LFTs were lipase was normal. Urinalysis was negative. CT scan of the abdomen pelvis without IV contrast acute abnormalities to suggest that he has ureteral stone or hydronephrosis/ hydroureter. Given the negative CT scan vomiting I believe the patient's pain is consistent with left-sided paraspinal muscle strain with spasm. I did discuss this with the patient. He was given prescriptions for Tylenol 1000 mg every 6 hours as needed for pain, 400 mg every 6 hours as needed for pain Flexeril (cyclobenzaprine) 10 mg at night as 1000. he was given printed and verbal instructions and discharged home. Differential Diagnosis Differential Diagnoses: The differential diagnosis associated with the presentation includes ( see above) Admission/Observation Consideration of admission/observation: Escalation of care including admission/observation considered ( yes) Lab Data MDM Lab Attestation statement: I reviewed the patient's lab results. 09/09/25 19:00 09/09/25 19:00 Labs: Lab Results 09/09/25 Range/Units 19:00 WBC 3.4 L (4.8-10.8) X10*3/uL RBC 4.64 (4.60-5.80) X10*6/uL Hgb 13.6 L (14.0-18.0) g/dl Hct 39.6 L (42.0-52.0) % MCV 85.3 (80.0-98.0) fL MCH 29.3 (27.0-33.0) pg MCHC 34.3 (31.0-36.0) g/dl RDW 13.5 (11.0-16.0) % Plt Count 221 (160-400) X10*3/uL MPV 9.5 (9.4-12.4) fL Immature Gran % (Auto) 0.0 (0.0-0.4) % Neut % (Auto) 44.9 L (45-73) % Lymph % (Auto) 40.2 H (20-40) % [place] % (Auto) 10.7 (2-11) % Eos % (Auto) 3.6 (0-4) % Baso % (Auto) 0.6 (0-2) % Lymph # (Auto) 1.4 (1.2-4.9) X10*3/uL [place] # (Auto) 0.4 (0.1-1.2) X10*3/uL Eos # (Auto) 0.1 (0.0-0.4) X10*3/uL Baso # (Auto) 0.0 (0.0-0.2) X10*3/uL Abs Immat Gran (auto) 0.00 (0.00-0.03) X10*3/uL Absolute Neuts (auto) 1.5 L (2.0-8.3) x10*3/uL Absolute Nucleated RBC 0.000 (0.0-0.012) X10*3/uL Nucleated RBC % (auto) 0.0 (0.0-0.2) /100WBC Sodium 142 (135-145) mmol/L Potassium 4.0 (3.3-5.1) mmol/L Chloride 110 H (96-108) mmol/L Carbon Dioxide 26 (22-29) mmol/L Anion Gap 10 L (12-20) BUN 22 H (9-16) mg/dL Creatinine 0.90 (0.5-1.4) mg/dL Estim Creat Clear Calc 99.2 Estimated GFR > 60 Random Glucose 95 (60-115) mg/dL Calcium 9.2 D (8.4-10.2) mg/dL Magnesium 1.9 (1.6-2.6) mg/dL Total Bilirubin 0.3 (0.0-1.0) mg/dL AST 20 (5-37) U/L ALT 14 (0-40) U/L Alkaline Phosphatase 76 (39-117) U/L Total Protein 7.1 (6.5-8.0) g/dL Albumin 4.4 (3.5-5.0) g/dL Lipase 9 (8-78) U/L Urine Color Yellow Urine Appearance Clear Urine pH 7.0 (5.0-9.0) Ur Specific [place] 1.025 (1.005-1.025) Urine Protein Negative (Neg-Trace) mg/dL Urine Glucose (UA) Negative (Negative) mg/dL Urine Ketones Negative (Negative) mg/dL Urine Blood Negative (Negative) Urine Nitrite Negative (Negative) Ur Leukocyte Esterase Negative (Negative) Radiology Impression Discussion of test interpretation with radiology: I have reviewed the radiologist's reading. Radiologist Impression: CT Abdomen and Pelvis WO Contrast COMPARISON: None provided FINDINGS: Normal liver. Normal spleen. Normal kidneys. No urolithiasis or hydronephrosis. Normal adrenal glands. Normal pancreas. No visible cholelithiasis. No biliary dilation. No evidence of bowel obstruction or colitis. Normal appendix. Unremarkable bladder. No ascites. No pneumoperitoneum. No lymphadenopathy. No acute fracture. No abdominal aortic aneurysm. IMPRESSION: No acute findings. This document has been electronically signed by: Seth Johnston MD on 09/09/2025 21:45:03 Prescription Management I considered prescription management with: Pain Medication ( ibuprofen and Tylenol) and Other ( anti muscle spasm medication: Flexeril) Chronic Conditions Patient?s care impacted by: Other ( aplastic anemia with lymphopenia) Discharge Plan Discharge Clinical Impression: Strain of lumbar region Patient Disposition: Home, Self-Care Instructions: Back Pain (ED) Additional Instructions: Your blood work did reveal low white blood count of 3400 which is unchanged from your previous tests. Your kidney function was normal in your urine test was unremarkable. The CT scan of your abdomen pelvis without IV contrast was normal, you do not have any kidney stones causing your pain. Take ibuprofen 400 mg pills, 1 pills every 6 hours as needed for pain or fever. Take Tylenol (acetaminophen) 500 mg pills, 2 pills every 6 hours as needed for pain or fever. Take Flexeril (cyclobenzaprine) 10 mg pills, 1 pill every at night as needed for pain or spasm. ?This medication will make you sleepy. ?Do not drive or work while taking this medication. Follow-up with your doctor in 2 days. Please return to the emergency department if your symptoms get worse or if you develop any symptoms that are concerning to you. Prescriptions: New cyclobenzaprine 10 mg tablet 10 mg PO BEDTIME PRN (Reason: pain, muscle spasm) Qty: 10 0RF ibuprofen 400 mg tablet 400 mg PO TID PRN (Reason: fever or pain) Qty: 30 0RF acetaminophen [Tylenol Extra Strength] 500 mg tablet 1,000 mg PO Q6H PRN (Reason: pain) Qty: 20 0RF No Action propranolol 10 mg tablet 10 mg PO BID Qty: 60 0RF lorazepam [Ativan] 1 mg tablet 1 mg PO BEDTIME PRN (Reason: anxiety/sleep) Qty: 10 0RF Stand Alone Forms: Work/School Release Interventions: ED Discharge Assessment Last Done: 09/09/25 22:36 Discharge Date/Time: 09/09/25 22:36 Print Language: Kinyarwanda
[2025-09-09 19:07] LABS: MANUAL DIFF FLAG NO
[2025-09-09 19:15] LABS: Appearance Urine Clear; Glucose Urine UA Negative (Negative); Hematocrit 39.6 % (42.0-52.0); Hemoglobin 13.6 g/dl (14.0-18.0); Imm Gran Abs Auto 0.00 X10*3/uL (0.00-0.03); Imm Gran Pct Auto 0.0 % (0.0-0.4); Lymphocytes Absolute Auto 1.4 X10*3/uL (1.2-4.9); Mean Corpuscular HGB Conc 34.3 g/dl (31.0-36.0); Mean Corpuscular Hemoglobin 29.3 pg (27.0-33.0); Mean Corpuscular Volume 85.3 fL (80.0-98.0); NRBC Abs Auto 0.000 X10*3/uL (0.0-0.012); NRBC Pct Auto 0.0 /100WBC (0.0-0.2); PH 7.0 (5.0-9.0); Platelet Count 221 X10*3/uL (160-400); Red Blood Count 4.64 X10*6/uL (4.60-5.80); Specific Gravity - Urine 1.025 (1.005-1.025); White Blood Count 3.4 X10*3/uL (4.8-10.8)
[2025-09-09 19:39] LABS: Alanine Aminotransferase 14 U/L (0-40); Albumin Level 4.4 g/dL (3.5-5.0); Alkaline Phosphatase 76 U/L (39-117); Anion Gap 10 (12-20); Aspartate Amino Transferase 20 U/L (5-37); Blood Urea Nitrogen 22 mg/dL (9-16); Calcium 9.2 mg/dL (8.4-10.2); Carbon Dioxide 26 mmol/L (22-29); Chloride 110 mmol/L (96-108); Creatinine Clr Calc Pharmacy 99.2; Estimated Glomerular Filt Rate > 60; Lipase 9 U/L (8-78); Magnesium 1.9 mg/dL (1.6-2.6); Potassium 4.0 mmol/L (3.3-5.1); Sodium 142 mmol/L (135-145); Total Protein 7.1 g/dL (6.5-8.0)
--- NOTE | 2025-09-09 20:36 | PC.NURSE ---
pt seen by provider, medicated per mar. awaiting ct scan.
[2025-09-09 20:42] VITALS: BP 102/75; PULSE 62; RESP 16; TEMP 36.5; O2SAT 98
--- NOTE | 2025-09-09 22:35 | PC.NURSE ---
reviewed discharge instructions with pt. pt verbalized understanding, no sign of distress upon discharge.
[2025-09-09 22:36] VITALS: BP 102/75; PULSE 62; RESP 16; TEMP 36.5; O2SAT 98
== END 2025-09-09 22:36 | disposition home or self-care (01) ==
PROVIDERS: Physician Assistant Medical; Emergency Provider Emergency Medicine Emergency Medical Services; PCP Internal Medicine
DX: M54.50 Low back pain, unspecified (principal); R10.32 Left lower quadrant pain; Z87.442 Personal history of urinary calculi; Z79.899 Other long term (current) drug therapy
CPT/HCPCS: 36415; 74176; 80053; 81003; 83690; 83735; 85025; 96372; 99284; J1885

== ENCOUNTER → 2025-09-09 20:28 | Outpatient (BNV) | payer OTHER, SELFPAY | PROVIDERS: Emergency Provider Emergency Medicine Emergency Medical Services; PCP Internal Medicine; Visit Provider Radiology Diagnostic Radiology | DX: R10.A2 Flank pain, left side (principal) | CPT/HCPCS: 74176 ==